=== PATIENT | male | born 1985 | race African-American/Black ===

== ENCOUNTER 2017-06-16 14:01 | Emergency (ER) | payer MEDICAID ==
[~2017-06-16] VITALS: Ht 172.7 cm; Wt 104.0 kg
[2017-06-16 16:58] LABS: BASOPHILS % 0.7 % (0.0-2.0); EOSINOPHILS % 2.8 % (0.0-5.0); HEMATOCRIT. 45.8 % (42.0-52.0); HEMOGLOBIN. 15.5 g/dL (14.0-18.0); MEAN CORPUSCULAR HEMOGLOBIN 32.2 pg (28.0-32.0); MEAN CORPUSCULAR VOLUME 94.9 fL (80.0-94.0); MEAN PLATELET VOLUME 9.6 fl (7.4-10.4); MONOCYTES % 10.1 % (2.0-8.0); NEUTROPHILS % 58.4 % (40.0-76.0); PLATELET 282 x1000/uL (130-400); RED BLOOD CELL COUNT 4.83 mill/uL (4.7-6.1); RED CELL DISTRIBUTION WIDTH 13.4 % (11.6-14.6)
[2017-06-16 17:08] LABS: INR 1.1; PARTIAL THROMBOPLASTIN TIME 25.4 sec (23.4-31.0); PROTHROMBIN TIME 10.9 sec (9.4-11.6)
[2017-06-16 17:15] LABS: CARBON DIOXIDE 27 mEq/L (21-32); CHLORIDE 105 mEq/L (98-107); TROPONIN I < 0.02 ng/mL (0.00-0.04)
[2017-06-16 18:16] VITALS: BP 132/90
== END 2017-06-16 18:17 | disposition home or self-care (01) ==
LOC: ER 15:29
DX: S60.222A Contusion of left hand, initial encounter (principal); I10 Essential (primary) hypertension; R07.9 Chest pain, unspecified; F12.10 Cannabis abuse, uncomplicated; Z86.711 Personal history of pulmonary embolism; X58.XXXA Exposure to other specified factors, initial encounter; Y93.89 Activity, other specified; Y92.89 Other specified places as the place of occurrence of the external cause; Y99.8 Other external cause status
CPT/HCPCS: 36415; 71010; 73130; 80053; 83690; 84484; 85025; 85610; 85730; 93005; 99285; Z7610

== ENCOUNTER 2018-07-24 12:17 | Emergency (ER) | payer MEDICAID ==
[~2018-07-24] VITALS: Ht 172.7 cm; Wt 107.0 kg
[2018-07-24] MEDS ORDERED: RIVA10TA PO (12:30)
[2018-07-24] MEDS ORDERED: IBUPROFEN 800MG TABLET PO ONE (16:45)
[2018-07-24 16:52] VITALS: BP 133/81
== END 2018-07-24 18:23 | disposition home or self-care (01) ==
LOC: ER 13:02
DX: S46.812A Strain of other muscles, fascia and tendons at shoulder and upper arm level, left arm, initial encounter (principal); S20.20XA Contusion of thorax, unspecified, initial encounter; F12.10 Cannabis abuse, uncomplicated; Z86.711 Personal history of pulmonary embolism; Z79.01 Long term (current) use of anticoagulants; V43.52XA Car driver injured in collision with other type car in traffic accident, initial encounter; Y93.89 Activity, other specified; Y92.488 Other paved roadways as the place of occurrence of the external cause
CPT/HCPCS: 71101; 73030; 99283